=== PATIENT | male | born 1980 | race Two or more races ===

== ENCOUNTER 2024-01-27 14:00 | Emergency (ER) | payer MEDICAID, SELFPAY ==
--- NOTE | ~2024-01-27 | XR_ITS ---
EXAMINATION: XR HAND/WRIST, RIGHT CLINICAL INFORMATION: Pain fifth digit. COMPARISON: None TECHNIQUE: PA, lateral, oblique, and scaphoid views of the right hand and wrist. FINDINGS: There is an oblique fracture of the distal shaft of the fifth metacarpal. There is about one half shaft width displacement of the distal fracture fragment anteriorly with mild angulation of the fracture. XR/XR hand wrist RT IMPRESSION: Fracture of the distal shaft of the fifth metacarpal.
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
[2024-01-27 14:24] VITALS: BP 134/85; PULSE 81; RESP 18; TEMP 37.1; O2SAT 98; BMI 26.7
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
[2024-01-27 16:54] VITALS: BP 126/78; PULSE 82; RESP 16; TEMP 36.7; O2SAT 97
[2024-01-27] MEDS: oxyCODONE HCl Immed Release 5 MG TABLET 10 MG PO (17:02)
[2024-01-27] MEDS: Lidocaine HCl 1 % MPF 5 ML VIAL INFILTRATI (17:11)
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
[2024-01-27 17:28] VITALS: BP 126/78; PULSE 82; RESP 16; TEMP 36.7; O2SAT 97
== END 2024-01-27 17:29 | disposition home or self-care (01) ==
PROVIDERS: Emergency Provider Internal Medicine; PCP Student in an Organized Health Care Education/Training Program
DX: S62.327A Displaced fracture of shaft of fifth metacarpal bone, left hand, initial encounter for closed fracture (principal); S20.212A Contusion of left front wall of thorax, initial encounter; Y04.2XXA Assault by strike against or bumped into by another person, initial encounter; Y93.89 Activity, other specified; Y92.481 Parking lot as the place of occurrence of the external cause; Y99.9 Unspecified external cause status
CPT/HCPCS: 29125; 71101; 73110; 73130; 99283

== ENCOUNTER 2024-02-07 08:49 | Outpatient (REF) | payer MEDICAID, SELFPAY ==
--- NOTE | ~2024-02-07 | XR_ITS ---
EXAMINATION: XR HAND, RIGHT CLINICAL INFORMATION: Pain in the right hand. Attention fifth metacarpal COMPARISON: None available. TECHNIQUE: PA, lateral, and oblique views of the right hand. FINDINGS: The comminuted distal metaphyseal fracture is redemonstrated with unchanged alignment. In overall appearance. No osseous bridging detected. The remaining bones joints and soft tissues are unremarkable. XR/XR hand RT min 3V IMPRESSION: Distal fifth metacarpal fracture without change . No osseous bridging detected. Electronically signed by: Sagar Duran MD 03/01/2024 07:45 PM EDT
== END 2024-02-07 08:50 | disposition home or self-care (01) ==
LOC: HO.HOSX 08:49
DX: S62.336A Displaced fracture of neck of fifth metacarpal bone, right hand, initial encounter for closed fracture (principal); M79.641 Pain in right hand
CPT/HCPCS: 26600; 73130; 99212

== ENCOUNTER 2024-02-07 10:28 | Outpatient (AMB) | payer MEDICAID, SELFPAY ==
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
== END 2024-02-07 11:34 | disposition home or self-care (01) ==
PROVIDERS: PCP Student in an Organized Health Care Education/Training Program
DX: S62.336A Displaced fracture of neck of fifth metacarpal bone, right hand, initial encounter for closed fracture (principal)
CPT/HCPCS: 26600; 99204

== ENCOUNTER 2024-02-28 09:27 | Outpatient (REF) | payer MEDICAID, SELFPAY ==
--- NOTE | ~2024-02-28 | XR_ITS ---
EXAMINATION: XR HAND, RIGHT CLINICAL INFORMATION: Pain in the right hand COMPARISON: Prior x-ray of the hand 02/07/2024 TECHNIQUE: PA, lateral, and oblique views of the right hand. FINDINGS: Persistent mildly displaced comminuted fracture of the distal diametaphysis of the fifth metacarpal redemonstrated. Alignment unchanged. There is some callus formation noted new compared to prior. The remaining bones joints and soft tissues unremarkable. XR/XR hand RT min 3V IMPRESSION: Healing fracture of the distal fifth metacarpal unchanged in alignment. Electronically signed by: Sagar Duran MD 03/01/2024 05:23 PM EDT
== END 2024-02-28 09:28 | disposition home or self-care (01) ==
LOC: HO.HOSX 09:27
PROVIDERS: PCP Student in an Organized Health Care Education/Training Program
DX: M79.641 Pain in right hand (principal)
CPT/HCPCS: 73130; 99212

== ENCOUNTER 2024-02-28 10:19 | Outpatient (AMB) | payer MEDICAID, SELFPAY ==
[2024-02-28 10:20] VITALS: BMI 26.6
--- NOTE | 2024-02-28 10:20 | A.OFFVIS_ITS ---
Vital Signs 02/28/24 10:20 Height 5 ft 6 in Weight 165 lb BMI 26.6 Intake Visit Reasons: OV-Fracture of fifth metacarpal bone of right hand Intake Note: Andre is a 43 year old right hand dominant male who presents today for a follow up right 5th MC fracture, DOI 01/27/24. Cast off and xrays updated. Patient reports discomfort/stiffness with coming out of cast however he denies any pain. Allergies No Known Allergies Allergy (Verified 02/28/24 10:23) HPI HPI OV-Fracture of fifth metacarpal bone of right hand: Details: Patient is a 43-year-old male presents for follow-up evaluation of 5th metacarpal neck fracture, date of injury 01/27/2024. Today, the patient reports that he is still experiencing pain in the 5th metacarpal in the area of the fracture, and he also reports that his ring and small fingers have gotten significantly stiff since last visit due to being in the cast. Patient inquires if he will be able to be removed from a cast at this time. Patient denies any numbness or tingling in the right upper extremity. No other acute complaints or concerns at this time. [facility] Surgical History Hx of hand surgery History of facial surgery Review of Systems Const All systems reviewed & are unremarkable except as noted in HPI and below Physical Exam Vital Signs: BMI result Body Mass Index 26.6 Extrem Other: Patient is alert, oriented, and in no acute distress. Neuro: Patient reports normal sensation of the tips of all digits of the right hand at is time Vascular: Cap refill brisk Pain: Patient reports tenderness to palpation over the 5th metacarpal neck in the area of the fracture Patient reports no pain to palpation of any of the other metacarpals or digits of the right hand ROM: Patient is unable to make a closed fist with the ring and small fingers of the right hand at this time Range of motion improves with encouragement and passive range of motion of the hand, but patient is still unable to closed fist fully with those digits. Range of motion of all of the digits full and intact Skin: No lacerations or abrasions. General: There is noted edema at the level of the fracture on the 5th metacarpal of the right hand No ecchymosis, erythema, or evidence of infection. Psych: Appears grossly normal Affect normal Attitude cooperative Results Reviewed Results Reviewed: X-rays obtained in the office today and independently reviewed by me, Klever Beaulieu PA-C, demonstrate displaced, comminuted fracture of the 5th metacarpal head and neck, with evidence of interval bony healing. Assessment & Plan Assessment & Plan (1) Displaced fracture of neck of fifth metacarpal bone, right hand, initial encounter for closed fracture: Code(s): S62.336A - Displaced fracture of neck of fifth metacarpal bone, right hand, initial encounter for closed fracture Category: Medical Plan 1. Fracture of right 5th metacarpal, displaced, comminuted Date of injury 01/27/2024 At this time, the patient is informed that, due to the fact that he is still experiencing tenderness to palpation of the area of the fracture, he will need to be placed back into a cast for a further 2 weeks to allow for greater bony healing The patient inquires if there is any other options available to him, and after consultation with Dr. Kang, I offered the patient the potential of wearing a Velcro wrist splint with julieta taping, however the only thing he would be able to do with his right hand, particularly the 4th and 5th digits, would be gentle range of motion After consideration, the patient and his partner both feel that it would be best to have the increased protection of the cast for the next 2 weeks Patient is placed once again in an ulnar gutter cast at this time for further 2 weeks until repeat evaluation with repeat x-rays Patient is amenable to this Patient will follow-up in 2 weeks with repeat x-rays, sooner with any acute concerns Orders: Orders XR hand RT min 3V Today M79.641 - Pain in right hand Coding Level of Care Code Global (25074) Diagnoses Displaced fracture of neck of fifth metacarpal bone, right hand, initial encounter for closed fracture S62.336A
== END 2024-02-28 11:37 | disposition home or self-care (01) ==
LOC: HO.HOS 10:19
PROVIDERS: PCP Student in an Organized Health Care Education/Training Program
DX: S62.336A Displaced fracture of neck of fifth metacarpal bone, right hand, initial encounter for closed fracture (principal)
CPT/HCPCS: 99024

== ENCOUNTER 2024-03-14 09:47 | Outpatient (REF) | payer MEDICAID, SELFPAY ==
--- NOTE | ~2024-03-14 | XR_ITS ---
EXAMINATION: XR HAND, RIGHT CLINICAL INFORMATION: Right hand pain. COMPARISON: 02/28/2024 TECHNIQUE: PA, lateral, and oblique views of the right hand. FINDINGS: Alignment of the oblique, comminuted fifth metacarpal shaft fracture appears unchanged with mild apex dorsal and apex medial angulation at the fracture site. Progressive callus formation is evident at the fracture site without solid osseous bridging. No new fractures. XR/XR hand RT min 3V IMPRESSION: Progressive healing of the fifth metacarpal shaft fracture with unchanged alignment. Electronically signed by: Javier Petty MD 03/27/2024 11:46 PM EDT
== END 2024-03-14 09:48 | disposition home or self-care (01) ==
LOC: HO.HOSX 09:47
PROVIDERS: PCP Student in an Organized Health Care Education/Training Program
DX: M79.641 Pain in right hand (principal); S62.336D Displaced fracture of neck of fifth metacarpal bone, right hand, subsequent encounter for fracture with routine healing
CPT/HCPCS: 73130; 99212

== ENCOUNTER 2024-03-14 11:19 | Outpatient (AMB) | payer MEDICAID, SELFPAY ==
--- NOTE | 2024-03-14 11:22 | A.OFFVIS_ITS ---
Intake Visit Reasons: OV-Fracture of fifth metacarpal bone of right hand Intake Note: Andre is a 43 year old right hand dominant male who presents today for a follow up visit for his right 5th MC fracture, DOI: 01/27/2024. Patient reports his right hand is feeling better. He is expressing stiffness in the wrist with ROM and pain that he suspects is from his cast being on. Allergies No Known Allergies Allergy (Verified 03/14/24 11:25) HPI HPI OV-Fracture of fifth metacarpal bone of right hand: Details: Patient is a 43-year-old male who presents for follow-up evaluation for fracture of right 5th metacarpal, date of injury 01/27/2024. The patient reports that at this time, he is not experiencing any pain at the level of the fracture, but states that his small finger has gotten quite stiff from being in a cast for 6 weeks. The patient reports that he is unable to make a closed fist with the small finger. Patient denies any numbness or tingling in the right upper extrem ity. No other acute complaints or concerns at this time. [facility] Surgical History Hx of hand surgery History of facial surgery Social History (Updated 03/14/24 @ 11:26 by DEREK Zambrano) Alcohol intake: never Patient Tobacco Use Status: Current someday Tobacco user Substance Use Type: Marijuana Current occupation: right handed Physical Exam Extrem Other: Patient is alert, oriented, and in no acute distress. Neuro: Patient reports normal sensation of the tips of all digits of the right hand at is time Vascular: Cap refill brisk Pain: Patient reports no tenderness to palpation over the 5th metacarpal neck in the area of the fracture Patient reports no pain to palpation of any of the other metacarpals or digits of the right hand ROM: Patient is unable to make a closed fist with the right small finger at this time Range of motion improves with encouragement and passive range of motion of the hand, but patient is still unable to closed fist fully with right small finger Range of motion of all of the digits full and intact Skin: No lacerations or abrasions. General: Edema previously present at the level of the fracture over the 5th metacarpal has resolved No ecchymosis, erythema, or evidence of infection. Psych: Appears grossly normal Affect normal Attitude cooperative Results Reviewed Results Reviewed: X-rays obtained in the office today and independently reviewed by me, Klever Beaulieu PA-C, demonstrate displaced fracture of the right 5th metacarpal neck with evidence of interval bony healing. Assessment & Plan Assessment & Plan (1) Displaced fracture of neck of fifth metacarpal bone, right hand, initial encounter for closed fracture: Code(s): S62.336A - Displaced fracture of neck of fifth metacarpal bone, right hand, initial encounter for closed fracture Category: Medical Plan 1. Right 5th metacarpal neck fracture, displaced Date of injury 01/27/2024 Patient appears to be recovering well from his injury Patient is educated about the typical recovery course At this time, the patient is informed that he no longer needs to wear a cast, and then he will be given a Velcro wrist splint to wear with daytime activities, as well as julieta tape to julieta tape his right small and ring fingers to act as a moving splint Patient is also informed that he should not lift anything heavier than a cell phone in his right hand Patient will also be referred to occupational hand therapy for range of motion and strengthening of his right hand Patient is amenable to this plan Patient will follow-up in 4 weeks, sooner with any acute concerns Orders: Orders XR hand RT min 3V Today M79.641 - Pain in right hand OT Evaluation and Treatment Today S62.336A - Displaced fracture of neck of fifth metacarpal bone, right hand, initial encounter for closed fracture Coding Level of Care Code Global (27396) Diagnoses Displaced fracture of neck of fifth metacarpal bone, right hand, initial encoun ter for closed fracture S62.336A
== END 2024-03-14 12:09 | disposition home or self-care (01) ==
LOC: HO.HOS 11:20
PROVIDERS: PCP Student in an Organized Health Care Education/Training Program
DX: S62.336A Displaced fracture of neck of fifth metacarpal bone, right hand, initial encounter for closed fracture (principal)
CPT/HCPCS: 99024

== ENCOUNTER 2024-04-11 08:20 | Outpatient (REF) | payer MEDICAID, SELFPAY ==
--- NOTE | ~2024-04-11 | XR_ITS ---
EXAMINATION: XR HAND, RIGHT CLINICAL INFORMATION: Pain in right hand COMPARISON: Multiple prior right hand radiographs, most recent 03/14/2024 TECHNIQUE: PA, lateral, and oblique views of the right hand. FINDINGS: Oblique comminuted fifth metatarsal shaft fracture in unchanged alignment with mild apex dorsal and apex medial angulation. Progressive bony callus formation . No fracture. Osseous structures and remain in anatomic alignment joint space is maintained. No focal soft tissue swelling. No radiopaque foreign body. XR/XR hand RT min 3V IMPRESSION: Progressive interval healing of the oblique comminuted fifth metatarsal shaft fracture, though fracture lucencies remain visible. Electronically signed by: January Phillip DO 04/25/2024 04:55 PM EDT
== END 2024-04-11 08:21 | disposition home or self-care (01) ==
LOC: HO.HOSX 08:20
DX: M79.641 Pain in right hand (principal); S62.336D Displaced fracture of neck of fifth metacarpal bone, right hand, subsequent encounter for fracture with routine healing
CPT/HCPCS: 73130; 99212

== ENCOUNTER 2024-04-11 08:56 | Outpatient (AMB) | payer MEDICAID, SELFPAY ==
--- NOTE | 2024-04-11 09:37 | A.OFFVIS_ITS ---
Vital Signs 04/11/24 09:42 Height 5 ft 6 in Weight 180 lb BMI 29.0 Handedness Right Intake Visit Reasons: OV-FC of fifth metacarpal bone of RT hand-x/ray Intake Note: Andre is a 43 year old right hand dominant male who presents today for a follow up visit for his right 5th metacarpal fracture, DOI: 01/27/2024. Patient reports he did not see OT. He said he needs to see his doctor for this and I informed him we would be able to send over that referral for him. He expresses his left PIP joint of his 5th digits feels stiff. Allergies No Known Allergies Allergy (Verified 04/11/24 09:42) HPI HPI OV-FC of fifth metacarpal bone of RT hand-x/ray: Details: Patient is a 43-year-old male who presents for follow-up evaluation of boxer's fracture of the right 5th metacarpal, date of injury 01/27/2024. Today, the p atient reports that his symptoms have improved significantly, and then he is only experiencing minor discomfort with range of motion of the right hand. Patient reports that he has been largely noncompliant with julieta taping or wearing the Velcro wrist splint, but states that this has not caused any worsening symptoms. Patient denies any numbness or tingling in the right hand. No other acute complaints or concerns at this time. [facility] Surgical History Hx of hand surgery History of facial surgery Social History Alcohol intake: never Patient Tobacco Use Status: Current someday Tobacco user Substance Use Type: Marijuana Current occupation: right handed Review of Systems Const All systems reviewed & are unremarkable except as noted in HPI and below Physical Exam Vital Signs: BMI result Body Mass Index 29.0 Extrem Other: Patient is alert, oriented, and in no acute distress. Neuro: Patient reports normal sensation of the tips of all digits of the right hand at is time Vascular: Cap refill brisk Pain: Patient reports no tenderness to palpation over the 5th metacarpal neck in the area of the fracture Patient reports no pain to palpation of any of the other metacarpals or digits of the right hand ROM: Patient is able to make a closed fist and extend all digits of the right hand fully, but reports some minor discomfort and tightness in the right small finger when doing so, primarily at the PIP joint Skin: No lacerations or abrasions. General: No ecchymosis, erythema, or evidence of infection. Psych: Appears grossly normal Affect normal Attitude cooperative Results Reviewed Results Reviewed: X-rays obtained in the office today and independently reviewed by me, Klever Beaulieu PA-C, demonstrate displaced fracture of the right 5th metacarpal neck with evidence of interval bony healing. Assessment & Plan Assessment & Plan (1) Displaced fracture of neck of fifth metacarpal bone, right hand, initial encounter for closed fracture: Code(s): S62.336A - Displaced fracture of neck of fifth metacarpal bone, right hand, initial encounter for closed fracture Category: Medical Plan 1. Displaced fracture of right 5th metacarpal neck Date of injury 01/27/2024 Patient appears to be recovering well from his injury Patient is educated about the typical recovery course At this time, patient is educated that he should only wear the Velcro wrist splint in very crowded situations, but he should be still julieta taping with daytime activities Patient is educated that he does not have to julieta tape at night or while at rest and then he should be working on range of motion at these times Patient is also referred to occupational hand therapy for range of motion and strengthening of the right hand for post cast stiffness Patient was amenable to this plan Patient will follow-up in 4 weeks with repeat x-rays for reassessment, sooner with any acute concerns Orders: Orders XR hand RT min 3V Today M79.641 - Pain in right hand Coding Level of Care Code Global (37623) Diagnoses Displaced fracture of neck of fifth metacarpal bone, right hand, initial encounter for closed fracture S62.336A
[2024-04-11 09:42] VITALS: BMI 29.0
== END 2024-04-11 10:08 | disposition home or self-care (01) ==
PROVIDERS: PCP Student in an Organized Health Care Education/Training Program
DX: S62.336A Displaced fracture of neck of fifth metacarpal bone, right hand, initial encounter for closed fracture (principal)
CPT/HCPCS: 99024

== ENCOUNTER 2024-04-25 12:35 | Emergency (ER) | payer MEDICAID, SELFPAY ==
--- NOTE | ~2024-04-25 | XR_ITS ---
EXAMINATION: XR HAND, RIGHT CLINICAL INFORMATION: Injury COMPARISON: Multiple prior right hand radiographs, most recent 04/11/2024 TECHNIQUE: PA, lateral, and oblique views of the right hand. FINDINGS: Oblique comminuted fifth metatarsal shaft fracture in unchanged alignment with mild apex dorsal and apex medial angulation. Progressive bony callus formation . No fracture. Osseous structures and remain in anatomic alignment joint space is maintained. No focal soft tissue swelling. No radiopaque foreign body. XR/XR hand RT min 3V IMPRESSION: Mild progressive interval healing of the oblique comminuted fifth metatarsal shaft fracture. Electronically signed by: January Phillip DO 04/25/2024 04:54 PM EDT
[2024-04-25 13:07] VITALS: BP 120/74; PULSE 84; RESP 16; TEMP 37; O2SAT 98; BMI 28.2
--- NOTE | 2024-04-25 13:12 | ED_ITS ---
HPI - Extremity Problem General Chief complaint: Extremity Injury, Upper Stated complaint: R hand injury Time Seen by Provider: 04/25/24 15:05 Source: patient Mode of arrival: ambulatory Limitations: no limitations History of Present Illness ED Provider: Sammy Montanez PA-C HPI Narrative: 44-year-old male with known right displaced metacarpal fracture presents to ED for pain. Patient states fracture since February that has been healing but still shows fracture on multiple x-rays. Came today because he pulled something with his right hand and felt pain in right metacarpal where he had the fracture. Patient has not gone to physical therapy as recommended. It is orthopedic PA surgeon recommended Velcro splint with julieta taped but patient admits to not being compliant. Related Data Previous Rx's ?Medication ?Instructions ?Recorded naproxen 500 mg tablet 500 mg PO BID PRN pain 7 days #14 04/25/24 tabs Allergies Allergy/AdvReac Type Severity Reaction Status Date / Time No Known Allergies Allergy Verified 04/25/24 13:10 Review of Systems Review of Systems: Right hand pain Yes all other systems are reviewed and are negative and Other PMFSH Past Medical History Surgical History Hx of hand surgery History of facial surgery Social History Social History Alcohol intake: never Patient Tobacco Use Status: Current someday Tobacco user Substance Use Type: Marijuana Advance Directives: No Advance Directives Information Provided: Yes Do you have a plan to hurt others: No Plan Current occupation: right handed Physical Exam Vital Signs: Vital Signs: Last Vital Signs Temp 98.6 F 04/25/24 15:28 Pulse 84 04/25/24 15:28 Resp 16 04/25/24 15:28 BP 120/74 04/25/24 15:28 Pulse Ox 98 04/25/24 15:28 O2 Del Method Room Air 04/25/24 15:28 BMI result Body Mass Index 28.2 Const: General: cooperative, healthy appearing, comfortable, no acute distress, well developed, alert, awake and Physically active Orienta tion/consciousness: patient oriented x3 HEENT: Head: Yes normal to inspection, Yes No palpable skull fracture present, Yes normocephalic and Yes atraumatic Eyes: General: appearance normal, both eyes and all related structures Neck: Neck: Yes normal visual inspection, Yes full ROM, Yes no lymphadenopathy, Yes no meningeal signs, Yes trachea midline, Yes supple, No anterior neck swelling and No tender Chest: Chest palpation & inspection: normal inspection of the chest and normal palpation of entire chest wall Resp: Effort & Inspection: normal respiratory effort and able to speak in complete sentences Auscultation: clear to auscultation bilaterally Cardio: Jugular venous distension: no JVD Heart sounds: S1 normal heart sound present and S2 normal heart sound present GI: Inspection: Yes normal to inspection Palpation (GI): Soft to palpation, not firm, nontender, no guarding and not rigid : General: No CVA tenderness and Yes no CVA tenderness Back/Spine/Pelvis: Back: no CVA tenderness, No CVA tenderness and No back tenderness Skin: General skin exam: no rashes or lesions noted, elasticity normal and turgor normal Neuro: General: patient oriented x3, gait normal, tone normal, moves all extremities, Normal light touch and pain sensation, no meningeal signs, no focal motor deficits, CN's II-XI intact bilaterally and normal sensation to monofilament Extrem: General: Yes normal to inspection, Yes full ROM and Yes capillary refill normal Psych: Appearance: grossly normal, well kempt and not disheveled Course Course Course Narrative: This is an RME: Additional HPI, ROS, PE not included below will be deferred to primary provider. RME assessment and note performed by: Lorena Robertson PA-C This is a 44-year-old male who presents to the ER with complaints of fifth finger injury. Patient reports that he recently had his cast removed 2 weeks ago, he had a 5th metacarpal fracture. He was taken off his jacket today and felt his. Now re-injuring 5th digit. Plan: X-ray, further ER evaluation needed. Medical Decision Making Medical Decision Making MDM Narrative: 3:15 pm: 44-year-old male with known right displaced 5th metacarpal fracture presents to ED for re-evaluation due to pain. Patient was supposed to have a velcro splint on at all times and julieta tape but patient admits to not being compliant. Patient is sent for repeat x-ray. 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 As per orthopedic PA surgeon recommendation from last visit to recommended patient to be in Velcro splint and julieta tape. Patient states he has velcro splint and julieta tape at home. Patient is placed in Jabier bandage we will follow-up. 7:20pm: Patient's x-ray shows healing fracture no acute fracture. Patient was called to informed of this but could not be reached. Phone rnag right multiple times and not able to leave voicemail. Differential Diagnosis Differential Diagnoses: The differential diagnosis associated with the presentation includes Admission/Observation Consideration of admission/observation: Escalation of care including admission/observation considered Independent Interpretation I performed an independent interpretation of an: Plain X-Ray Radiology Impression Discussion of test interpretation with radiology: I have reviewed the radiologist's reading. Independent Historian Clinical information obtained from an independent historian. History obtained from or confirmed by: Other (patient) External Record Review External record reviewed: Other (prior visits) Prescription Management I considered prescription management with: Pain Medication Discharge Plan Discharge Clinical Impression: Displaced fracture of neck of fifth metacarpal bone, right hand, initial encounter for closed fracture Patient Disposition: Home, Self-Care Instructions: Hand Fracture (ED) Additional Instructions: Recommend follow-up with orthopedic surgeon as soon as possible. Return to the ED for swelling, bluish discoloration, redness, chills, fever, chills, red streaks, stiffness, or any other concerning symptoms. Prescriptions: New naproxen 500 mg tablet 500 mg PO BID PRN (Reason: pain) 7 Days Qty: 14 0RF Referrals: [facility] [place] Orthopedic Surgeons [Provider Group] (known hand fracture) Interventions: ED Discharge Assessment Last Done: 04/25/24 15:28 Discharge Date/Time: 04/25/24 15:29 Print Language: Setswana
--- NOTE | 2024-04-25 15:22 | MHC.EDTECH ---
Patient refused blood pressure
[2024-04-25 15:28] VITALS: BP 120/74; PULSE 84; RESP 16; TEMP 37; O2SAT 98
== END 2024-04-25 15:29 | disposition home or self-care (01) ==
PROVIDERS: Emergency Provider Emergency Medicine; PCP Student in an Organized Health Care Education/Training Program
DX: S62.336A Displaced fracture of neck of fifth metacarpal bone, right hand, initial encounter for closed fracture (principal); X50.9XXA Other and unspecified overexertion or strenuous movements or postures, initial encounter; Y93.9 Activity, unspecified; Y92.9 Unspecified place or not applicable; Y99.9 Unspecified external cause status
CPT/HCPCS: 73130; 99282; 99283